=== PATIENT | male | born 1945 | race African-American/Black ===

== ENCOUNTER → 2017-06-20 | Outpatient (CLI) | payer MEDICARE, BC ==
[~2017-06-20] MED LIST: APRACLONIDINE 1% 0.1 ML OPH; OPHTHALMIC IRRIG SOLUTION 120 ML; PHENYLephrine 10% 5 ML OPH; PROPARACAINE 0.5% 15 ML OPH; TROPICAMIDE 1% 3 ML OPH
== END | disposition home or self-care (01) ==
LOC: RAD 09:30
DX: H26.9 Unspecified cataract (principal)
CPT/HCPCS: 66821

== ENCOUNTER → 2017-07-06 | Outpatient (CLI) | payer MEDICARE, BC ==
[~2017-07-06] MED LIST changes: -OPHTHALMIC IRRIG SOLUTION 120 ML
== END | disposition home or self-care (01) ==
LOC: RAD 10:07
DX: H25.042 Posterior subcapsular polar age-related cataract, left eye (principal)
CPT/HCPCS: 66821